=== PATIENT | female | born 1990 | race Two or more races ===

== ENCOUNTER 2023-11-19 02:33 | Inpatient (IN) | payer BC ==
[2023-11-19] MEDS ORDERED: Water For Irrigation,Sterile 1,000 ML Container IRR PRN (02:58)
[2023-11-19] MEDS ORDERED: Tranexamic Acid IN NACL,ISO-OS 1,000 MG in Premix Bag 1 BAG IV PRN (02:58)
[2023-11-19] MEDS ORDERED: Lidocaine 1% 50 ML MDV INJECT PRN (02:58)
[2023-11-19] MEDS ORDERED: Sodium Chloride 0.9% 10 ML Syringe FLUSH PRN (02:58)
[2023-11-19] MEDS ORDERED: Butorphanol 2 MG/ML SDV IVPUSH PRN (02:58)
[2023-11-19] MEDS ORDERED: Misoprostol 200 MCG Tab PO PRN (02:58)
[2023-11-19] MEDS ORDERED: Ondansetron 4 MG/2 ML SDV IVPUSH PRN ×3 (02:58→15:03)
[2023-11-19] MEDS ORDERED: Carboprost Tromethamine 250 MCG/1 mL Vial IM PRN (02:58)
[2023-11-19] MEDS ORDERED: Methylergonovine 0.2 MG/1 ML Amp IM PRN ×2 (02:58→15:03)
[2023-11-19] MEDS ORDERED: Sodium Chloride 0.9% 2.5 ML Syringe FLUSH PRN (02:58)
[2023-11-19] MEDS ORDERED: Sodium Chloride 0.9% 20 ML SDV IV PRN (02:58)
[2023-11-19] MEDS ORDERED: Oxytocin/0.9 % Sodium Chloride 30 UNIT/500 ML BAG IV SCH ×2 (03:00→15:15)
[2023-11-19] MEDS: Lactated Ringers 1,000 ML IV SCH ×2 (03:28→17:04)
[2023-11-19 03:36] LABS: HEMATOCRIT 37.2 % (37.0-47.0); HEMOGLOBIN 12.2 g/dL (12.0-16.0); MEAN CORPUSCULAR HEMOGLOBIN 25.1 pg (28.0-32.0); MEAN CORPUSCULAR HGB CONC 32.8 g/dL (32.0-36.0); MEAN CORPUSCULAR VOLUME 76.4 fL (83.0-99.0); MEAN PLATELET VOLUME 11.4 fL (9.4-12.3); PLATELET COUNT,PLT 230 K/uL (150-400); RED BLOOD CELL COUNT 4.87 M/uL (4.10-5.30); WHITE BLOOD CELL COUNT,WBC 11.29 K/uL (3.9-11.3)
[2023-11-19 03:55] LABS: CALCIUM 8.5 mg/dL (8.5-10.1); CARBON DIOXIDE,CO2 20.1 mmol/L (21.0-32.0); CREATININE 0.7 mg/dL (0.6-1.0); EST CRCL DRUG DOSING (CG) 97.79 mL/min; POTASSIUM,K 3.8 mmol/L (3.5-5.1)
[2023-11-19] MEDS: Ropivacaine HCl/PF 200 ML ONE (03:56)
[2023-11-19] MEDS ORDERED: dexmedeTOMIDine HCl 200 MCG/2 ML SDV ONE (04:00)
[2023-11-19] MEDS: Dextrose 5% in Water 1,000 ML IV SCH (04:57)
[2023-11-19] MEDS: Insulin Regular in 0.9 % NACL 100 ML IV SCH (04:58)
[2023-11-19] MEDS: Phenylephrine HCl In 0.9% NaCl 1 MG/10 ML Syringe ONE (09:36)
[2023-11-19] MEDS: Phenylephrine HCl In 0.9% NaCl 1 MG/10 ML Syringe IVPUSH ONE (09:36)
[2023-11-19] MEDS ORDERED: ePHEDrine 50 MG/ML SDV IVPUSH PRN ×3 (09:59→15:03)
[2023-11-19] MEDS ORDERED: Ropivacaine HCl/PF 400 MG in Premix Bag 1 BAG EPIDUR SCH (10:00)
[2023-11-19] MEDS: Acetaminophen 500 MG Tab PO ONE (11:45)
[2023-11-19] MEDS: Oxytocin/0.9 % Sodium Chloride 30 UNIT/500 ML BAG IV SCH (12:40)
[2023-11-19] MEDS: Terbutaline 1 MG/ML SDV SUBCUT PRN (13:51)
[2023-11-19] MEDS: ceFAZolin 2 GM in Sodium Chloride 0.9% 50 ML IV ONE (13:56)
[2023-11-19] MEDS ORDERED: ceFAZolin 2 GM Vial ONE (13:58)
[2023-11-19] MEDS ORDERED: Bupivacaine 0.5% 10 ML SDV ONE (14:05)
[2023-11-19] MEDS ORDERED: Oxytocin 10 Units/1 ML SDV ONE ×2 (14:06→14:14)
[2023-11-19] MEDS ORDERED: Dexamethasone 4 MG/ML 5 ML MDV ONE (14:06)
[2023-11-19] MEDS ORDERED: Ondansetron 4 MG/2 ML SDV ONE (14:06)
[2023-11-19] MEDS ORDERED: Morphine PF 10 MG/10 ML SDV ONE (14:11)
[2023-11-19] MEDS ORDERED: Ropivacaine 0.5% 5 MG/ML 30 ML SDV ONE (14:12)
[2023-11-19] MEDS ORDERED: Phenylephrine HCl In 0.9% NaCl 1 MG/10 ML Syringe ONE ×2 (14:16→14:34)
[2023-11-19] MEDS ORDERED: Tranexamic Acid 1,000 MG/10 ML Vial ONE (14:23)
[2023-11-19] MEDS ORDERED: Calcium Chloride 10% 1 GM/10 ML Syringe ONE (14:24)
[2023-11-19] MEDS ORDERED: Oxytocin 10 Units/1 ML SDV IM PRN (15:03)
[2023-11-19] MEDS ORDERED: Bisacodyl 10 MG Supp RECTAL PRN (15:03)
[2023-11-19] MEDS ORDERED: Acetaminophen 500 MG Tab PO PRN (15:03)
[2023-11-19] MEDS ORDERED: droPERidol 5 MG/2 ML SDV IVPUSH PRN (15:03)
[2023-11-19] MEDS ORDERED: Misoprostol 200 MCG Tab RECTAL PRN (15:03)
[2023-11-19] MEDS ORDERED: Naloxone 0.4 MG/ML SDV IVPUSH PRN (15:03)
[2023-11-19] MEDS ORDERED: Metoclopramide 10 MG/2 ML SDV IVPUSH PRN ×2 (15:03→22:19)
[2023-11-19] MEDS ORDERED: diphenhydrAMINE 50 MG/ML SDV IVPUSH PRN ×2 (15:03)
[2023-11-19] MEDS ORDERED: fentaNYL 50 MCG/ML SDV IVPUSH PRN (15:03)
[2023-11-19] MEDS ORDERED: Acetaminophen/oxyCODONE 325-5 MG Tab PO PRN (15:03)
[2023-11-19] MEDS ORDERED: fentaNYL 100 MCG/2 ML SDV IVPUSH PRN (15:03)
[2023-11-19] MEDS ORDERED: HYDROmorphone 1 MG/ML Syringe IVPUSH PRN (15:03)
[2023-11-19] MEDS ORDERED: Morphine 2 MG/ML SYRINGE IVPUSH PRN (15:03)
[2023-11-19] MEDS ORDERED: Albuterol 0.083% 2.5 MG/3 ML Neb Soln NEB PRN (15:03)
[2023-11-19] MEDS: Ketorolac 30 MG/ML SDV IVPUSH SCH (16:01)
[2023-11-19] MEDS: Ondansetron 4 MG/2 ML SDV IVPUSH PRN (16:14)
[2023-11-19 16:25] LABS: PH,UMBILICAL ARTERIAL 7.239 (7.18-7.38); PH,UMBILICAL VENOUS 7.285 (7.25-7.45)
[2023-11-19] MEDS: Acetaminophen 1,000 MG in Premix Bag 1 BAG IV SCH (17:04)
[2023-11-19] MEDS: Docusate Sodium 100 MG Cap PO SCH (20:13)
[2023-11-20 06:04] LABS: HEMATOCRIT 35.1 % (37.0-47.0); HEMOGLOBIN 11.5 g/dL (12.0-16.0)
[2023-11-20] MEDS: Lanolin 100% Cream 7 GM Tube TOP PRN (06:22)
[2023-11-20] MEDS: Prenatal Multivitamin with Calcium/Folic Acid/Iron Tab PO SCH (09:16)
[2023-11-20] MEDS: Ibuprofen 800 MG Tab PO PRN (16:30)
[2023-11-20] MEDS: oxyCODONE 5 MG Tab PO PRN (18:16)
== END 2023-11-20 19:14 | disposition home or self-care (01) | DRG 540 ==
LOC: MW.OBCHECK 02:33 → MW.OB 02:34 → MW.OBCHECK 02:58 → OBSVTOIN 14:12 → MW.OB 18:33
PROVIDERS: ADMIT Obstetrics & Gynecology; ATTEND Obstetrics & Gynecology
PROC: 10D00Z1 Extraction of Products of Conception, Low, Open Approach (ICD-10-PCS; principal; 2023-11-19 14:00)
DX: O24.424 Gestational diabetes mellitus in childbirth, insulin controlled (principal); Z3A.38 38 weeks gestation of pregnancy; Z37.0 Single live birth; O62.1 Secondary uterine inertia; O76 Abnormality in fetal heart rate and rhythm complicating labor and delivery; O99.214 Obesity complicating childbirth
CPT/HCPCS: 01967; 01968; 36415; 51702; 59025; 64488; 80048; 82803; 82947; 85014; 85018; 85027; 86592; 86850; 86900; 86901; A9270-GY; J0131; J0665; J0690; J1100; J1815; J1885; J2274; J2371; J2405; J2590; J2795; J3105; J3490; J7060; J7120

== ENCOUNTER 2024-01-08 02:29 | Emergency (ER) | payer BC ==
[2024-01-08 02:57] LABS: BASOPHILS ABSOLUTE AUTO 0.07 K/uL (0.00-0.20); BASOPHILS PERCENT AUTO 0.6 % (0.0-1.0); EOSINOPHILS ABSOLUTE AUTO 0.06 K/uL (0.00-0.45); EOSINOPHILS PERCENT AUTO 0.5 % (0.0-6.0); HEMATOCRIT 41.5 % (37.0-47.0); IMMATURE GRAN ABSOLUTE AUTO 0.04 K/uL (0.00-0.05); IMMATURE GRAN PERCENT AUTO 0.3 % (0.0-0.4); LYMPHOCYTES ABSOLUTE AUTO 2.24 K/uL (1.00-4.80); LYMPHOCYTES PERCENT AUTO 18.8 % (24.0-44.0); MEAN CORPUSCULAR HEMOGLOBIN 24.2 pg (28.0-32.0); MEAN CORPUSCULAR HGB CONC 31.3 g/dL (32.0-36.0); MEAN CORPUSCULAR VOLUME 77.3 fL (83.0-99.0); MEAN PLATELET VOLUME 10.1 fL (9.4-12.3); MONOCYTES ABSOLUTE AUTO 0.69 K/uL (0.00-0.80); MONOCYTES PERCENT AUTO 5.8 % (0.0-8.0); NEUTROPHILS ABSOLUTE AUTO 8.81 K/uL (1.80-7.70); PLATELET COUNT,PLT 295 K/uL (150-400); RED BLOOD CELL COUNT 5.37 M/uL (4.10-5.30); WHITE BLOOD CELL COUNT,WBC 11.91 K/uL (3.9-11.3)
[2024-01-08] MEDS: Sodium Chloride 0.9% 1,000 ML IV ONE (02:57)
[2024-01-08] MEDS: Famotidine 20 MG/2 ML SDV IVPUSH ONE (02:58)
[2024-01-08] MEDS: Ondansetron 4 MG/2 ML SDV IVPUSH ONE (03:00)
[2024-01-08] MEDS: Sodium Chloride 0.9% 10 ML Syringe FLUSH PRN (03:02)
[2024-01-08] MEDS: Sodium Chloride 0.9% 2.5 ML Syringe FLUSH PRN (03:02)
[2024-01-08] MEDS: Morphine 4 MG/ML Syringe IVPUSH ONE (03:02)
[2024-01-08 03:29] LABS: ALANINE AMINOTRANSFERASE,ALT 33 IU/L (14-63); ALBUMIN 3.8 g/dL (3.4-5.0); ALKALINE PHOSPHATASE 98 U/L (46-116); ASPARTATE AMNIOTRANSFERASE,AST 21 IU/L (15-37); BILIRUBIN TOTAL 0.2 mg/dL (0.2-1.0); BLOOD UREA NITROGEN,BUN 10 mg/dL (7.0-18.0); CALCIUM 8.8 mg/dL (8.5-10.1); CARBON DIOXIDE,CO2 24.2 mmol/L (21.0-32.0); CHLORIDE,CL 99 mmol/L (98-107); CREATININE 0.8 mg/dL (0.6-1.0); EST CRCL DRUG DOSING (CG) 74.77 mL/min; GLUCOSE RANDOM 101 mg/dL (74-106); LIPASE 57 U/L (16-77); POTASSIUM,K 3.4 mmol/L (3.5-5.1); PROTEIN TOTAL,TP 7.6 g/dL (6.4-8.2); SODIUM,NA 126 mmol/L (136-145)
[2024-01-08 03:30] LABS: ESTIMATED GFR 99 mL/min (>60)
== END 2024-01-08 04:41 | disposition home or self-care (01) ==
LOC: MW.ED 02:29
DX: K80.50 Calculus of bile duct without cholangitis or cholecystitis without obstruction (principal); Z79.899 Other long term (current) drug therapy; Z75.8 Other problems related to medical facilities and other health care
CPT/HCPCS: 36415; 76705; 80053; 83690; 84484; 85025; 93005; 96361; 96374; 96375; 99284; J2270; J2405; J3490; J7030; 93010

== ENCOUNTER 2024-01-28 09:30 | Day surgery (SDC) | payer BC ==
[~2024-01-28 09:30] MED LIST: Acetaminophen 1,000 MG in Premix Bag 1 BAG IV SCH; Albuterol 0.083% 2.5 MG/3 ML Neb Soln NEB PRN; Bupivacaine 0.25% 30 ML SDV ONE; Bupivacaine 0.5% 30 ML SDV ONE; Dexamethasone 4 MG/ML 5 ML MDV ONE; HYDROmorphone 1 MG/ML Syringe IVPUSH PRN; Lidocaine 2% 5 ML SDV ONE; Metoclopramide 10 MG/2 ML SDV IVPUSH PRN; Morphine 10 MG/ML SDV ONE; Morphine 2 MG/ML SYRINGE IVPUSH PRN; Naloxone 0.4 MG/ML SDV IVPUSH PRN; Ondansetron 4 MG/2 ML SDV IVPUSH PRN; Ondansetron 4 MG/2 ML SDV ONE; Phenylephrine HCl In 0.9% NaCl 1 MG/10 ML Syringe ONE; Rocuronium Bromide 50 MG/5 ML Syringe ONE; Ropivacaine 0.5% 5 MG/ML 30 ML SDV ONE; Scopalamine 1mg/3day Transdermal Patch ONE; droPERidol 5 MG/2 ML SDV IVPUSH PRN; fentaNYL 100 MCG/2 ML SDV ONE; fentaNYL 50 MCG/ML SDV IVPUSH PRN; propofoL 100 ML ONE
[2024-01-28] MEDS ORDERED: ceFAZolin 2 GM Vial ONE (09:32)
[2024-01-28] MEDS: Pregabalin 75 MG Cap PO SCH (09:57)
[2024-01-28] MEDS: Lactated Ringers 1,000 ML IV SCH (09:57)
[2024-01-28] MEDS ORDERED: Scopalamine 1mg/3day Transdermal Patch TOP ONE (10:00)
[2024-01-28] MEDS ORDERED: Metoclopramide 10 MG/2 ML SDV ONE (10:53)
[2024-01-28] MEDS ORDERED: Sugammadex Sodium 200 MG/2 ML VIAL IV ONE ×2 (10:54→12:58)
[2024-01-28] MEDS ORDERED: Ketorolac 30 MG/ML SDV ONE (10:57)
[2024-01-28] MEDS ORDERED: propofoL 50 ML ONE (11:19)
[2024-01-28] MEDS ORDERED: Indocyanine Green 25 MG SDV ONE (11:21)
[2024-01-28] MEDS ORDERED: Rocuronium Bromide 50 MG/5 ML Syringe ONE (11:22)
[2024-01-28] MEDS ORDERED: HYDROmorphone 2 MG/ML Syringe ONE (11:29)
[2024-01-28] MEDS ORDERED: ceFAZolin 2 GM in Sodium Chloride 0.9% 50 ML IV ONE (11:39)
[2024-01-28] MEDS ORDERED: Esmolol 100 MG/10 ML SDV ONE (11:39)
== END 2024-01-28 15:30 | disposition home or self-care (01) ==
LOC: MW.SDS 09:30
PROVIDERS: ATTEND Surgery
DX: K80.10 Calculus of gallbladder with chronic cholecystitis without obstruction (principal); E66.9 Obesity, unspecified
CPT/HCPCS: 47563; 81025; A9270; J0131; J0665; J0690; J1100; J1170; J1885; J2270; J2371; J2405; J2704; J2765; J2795; J3010; J3490; J7120; 00790; 64488